=== PATIENT | male | born 1990 | race Caucasian/White ===

== ENCOUNTER 2023-08-06 12:10 | Inpatient (IN) ==
[2023-08-06 12:54] LABS: Basophils # (auto) 0.04 K/uL (0.00-0.20); Basophils % (auto) 0.8 %; Eosinophils # (auto) 0.09 K/uL (0.00-0.50); Eosinophils % (auto) 1.8 %; Hemoglobin 13.8 g/dl (14.0-18.0); Lymphocytes # (auto) 1.17 K/uL (1.20-3.40); Lymphocytes % (auto) 22.9 %; Mean Corpuscular Hemoglobin 29.8 pg (25.0-34.0); Mean Corpuscular Hgb Conc 33.7 g/dL (32.0-36.0); Mean Corpuscular Volume 88.6 fL (80.0-100.0); Mean Platelet Volume 11.1 fL (9.4-12.4); Monocytes # (auto) 0.59 K/uL (0.11-0.59); Monocytes % (auto) 11.5 %; Neutrophils # (auto) 3.22 K/uL (1.40-6.50); Platelet Count 128 K/uL (130-400); RDW Coefficient of Variation 12.6 % (11.5-14.5); RDW Standard Deviation 40.3 fL (36.4-46.3); Red Blood Count 4.63 M/uL (4.70-6.10); White Blood Count 5.11 K/ul (4.8-10.8)
[2023-08-06 13:08] LABS: BUN Creatinine Ratio 19.6 (10-20); Calcium 9.8 mg/dl (8.6-10.3); Est GFR (African American) 127.1 ml/min; Est GFR (Non-African American) 109.7 ml/min; Potassium 4.8 mmol/L (3.5-5.1)
[2023-08-06 13:25] LABS: Albumin Globulin Ratio 1.6 (0.9-2); Albumin Level 4.4 gm/dl (3.4-5.0); Bilirubin,Total 0.7 mg/dl (0.2-1.0); Globulin 2.7 gm/dl (2.5-4.0); Total Protein 7.1 gm/dl (6.0-8.3)
[2023-08-06] MEDS ORDERED: SODIUM CHLORIDE 0.9% 2,000 ML IV ONE (13:49)
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
[2023-08-06 16:27] LABS: Appearance Urine Clear (Clear); Bilirubin Urine Negative (Negative); Blood Urine Negative (Negative); Color Urine Yellow; Glucose Urine UA Negative (Negative); Ketones Urine Negative (Negative); Leukocyte Esterase Urine Negative (Negative); Nitrite Urine Negative (Negative); Protein Urine Negative (Negative); Specific Gravity Urine 1.019 (1.000-1.030); Urobilinogen Urine Negative (Negative)
--- NOTE | 2023-08-06 16:41 | Ultrasound Report ---
US liver CLINICAL HISTORY: transaminitis COMPARISON STUDY: CT of the abdomen and pelvis July 31, 2023. FINDINGS: Liver is sonographically normal. There is no biliary ductal dilatation. The common bile lakshmi t measures 3 mm in caliber. No gallstones are identified. No sonographic Diaz sign was elicited. Ga llbladder wall thickness is at the upper limits of normal. There is no pericholecystic fluid. Pancrea s is obscured by overlying bowel gas. There is no right hydronephrosis. IMPRESSION: 1. No significant abnormality within the right upper quadrant by sonography. 2. Obscured pancreas. ACT 112: Negative or not required by law. Electronically signed by: Leonel Schwarz M.D. 08/06/2023 4:39 PM
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
[2023-08-07] MEDS ORDERED: NITROGLYCERIN SL 0.4 MG/TAB TAB SL PRN (00:12)
[2023-08-07] MEDS ORDERED: POLYETHYLENE (MIRALAX) 17 GM PACK PO PRN (00:12)
[2023-08-07] MEDS: SODIUM CHLORIDE 0.9% 1,000 ML IV SCH ×7 (00:34→20:54)
[2023-08-07 06:35] LABS: Albumin Level 3.4 gm/dl (3.4-5.0); Bilirubin Direct 0.1 mg/dl (0-0.2); Bilirubin,Total 0.4 mg/dl (0.2-1.0); Total Protein 5.6 gm/dl (6.0-8.3)
[2023-08-07 07:35] LABS: Basophils # (auto) 0.04 K/uL (0.00-0.20); Basophils % (auto) 0.8 %; Eosinophils # (auto) 0.13 K/uL (0.00-0.50); Eosinophils % (auto) 2.5 %; Hematocrit (blood only) 34.5 % (42.0-52.0); Hemoglobin 11.4 g/dl (14.0-18.0); Immature Granulocytes # (auto) 0.01 K/uL (0.01-0.20); Immature Granulocytes % (auto) 0.2 %; Lymphocytes # (auto) 1.69 K/uL (1.20-3.40); Lymphocytes % (auto) 32.2 %; Mean Corpuscular Hemoglobin 29.5 pg (25.0-34.0); Mean Corpuscular Volume 89.4 fL (80.0-100.0); Mean Platelet Volume 11.1 fL (9.4-12.4); Monocytes # (auto) 0.55 K/uL (0.11-0.59); Monocytes % (auto) 10.5 %; Neutrophils # (auto) 2.83 K/uL (1.40-6.50); Neutrophils % (auto) 53.8 %; Platelet Count 115 K/uL (130-400); RDW Coefficient of Variation 12.5 % (11.5-14.5); RDW Standard Deviation 40.5 fL (36.4-46.3); Red Blood Count 3.86 M/uL (4.70-6.10); White Blood Count 5.25 K/ul (4.8-10.8)
[2023-08-07 08:05] LABS: Albumin Globulin Ratio 1.7 (0.9-2); Albumin Level 3.6 gm/dl (3.4-5.0); BUN Creatinine Ratio 16.7 (10-20); Bilirubin,Total 0.5 mg/dl (0.2-1.0); Calcium 8.6 mg/dl (8.6-10.3); Est GFR (African American) 138.4 ml/min; Est GFR (Non-African American) 119.4 ml/min; Globulin 2.1 gm/dl (2.5-4.0); Magnesium 1.8 mg/dl (1.7-2.4); Potassium 3.8 mmol/L (3.5-5.1); Total Protein 5.7 gm/dl (6.0-8.3)
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
[2023-08-08] MEDS: SODIUM CHLORIDE 0.9% 1,000 ML IV SCH ×6 (00:58→22:21)
--- NOTE | 2023-08-08 08:33 | Nephrology Progress Note ---
Date of Service August 08, 2023 Assessment & Plan (1) Rhabdomyolysis: Plan: Patient with traumatic rhabdomyolysis. Peak CK was 56,000. CK is downtrending with IV fluids as of 08/07. He continues to make urine with normal renal function. Other electrolytes are stable. No indication for dialysis. -Continue normal saline at lowered rate 150 ml/hr for now -await labs from today >> improvement continues -Once his CK is less than 5000 patient can be safely discharged. Care coordinated w/ Dr Bautista. No specific renal f/u indicated Would avoid NSAIDs until BOTH CK and transaminase levels have normalized for at least a week Will sign off; pls call if further ? (2) Transaminitis: Plan: Patient with elevated liver enzymes likely in setting of the rhabdomyolysis. Liver enzymes are downtrending. We will continue conservative management with IV fluids Admission and Anticipated Discharge Date Admission Date: August 06, 2023 Subjective no interval events clinically; denies uncontrolled pain or issues passing urine; denies edema Review of Systems 2 Review of Systems: All systems reviewed & are unremarkable except as noted in Subjective Physical Exam 2 Constitutional: well developed, + thin and cooperative Eyes: EOM intact bilaterally and + periorbital abnormality (ecchymosis) ENMT: Ears: no external ear abnormality Nose: no external nose abnormality Mouth: + dry oral mucous membranes Neck: no nuchal rigidity Respiratory: normal respiratory effort Auscultation: + diminished lung sounds Cardiovascular: Rate/Rhythm: regular rhythm and + bradycardic Extremities: no edema Gastrointestinal (Abdomen): Inspection/Auscultation: normal bowel sounds P ercussion/Palpation: abdomen soft; abdomen nontender Musculoskeletal: Extremities: strength 5/5 throughout Skin: no rashes, warm and dry Neurologic: hsu, fluent speech, no tremor Results & Data Vital Signs (Past 12 Hours) Vital Signs Temp Pulse Pulse Resp BP Pulse Ox O2 Del Method 08/08/23 08:00 36.3 C L 50 L 16 105/67 99 Room Air 08/08/23 04:58 36.3 C L 54 L 18 112/72 97 Room Air 08/07/23 23:43 60 08/07/23 23:34 36.6 C 58 L 18 122/73 98 Room Air Laboratory Results 08/07/23 07:14 08/07/23 07:14 CK 6351
[2023-08-08 09:01] LABS: Hematocrit (blood only) 38.6 % (42.0-52.0); Hemoglobin 12.6 g/dl (14.0-18.0); Mean Corpuscular Hemoglobin 29.4 pg (25.0-34.0); Mean Corpuscular Hgb Conc 32.6 g/dL (32.0-36.0); Mean Corpuscular Volume 90.2 fL (80.0-100.0); Mean Platelet Volume 11.1 fL (9.4-12.4); Platelet Count 133 K/uL (130-400); RDW Coefficient of Variation 12.6 % (11.5-14.5); RDW Standard Deviation 41.3 fL (36.4-46.3); Red Blood Count 4.28 M/uL (4.70-6.10); White Blood Count 5.13 K/ul (4.8-10.8)
[2023-08-08 09:16] LABS: BUN Creatinine Ratio 12.7 (10-20); Creatinine Clr Calc Pharmacy 123.8 ml/min; Est GFR (African American) 137.7 ml/min; Est GFR (Non-African American) 118.8 ml/min; Potassium 3.9 mmol/L (3.5-5.1)
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
[2023-08-08 09:32] LABS: Albumin Globulin Ratio 1.6 (0.9-2); Albumin Level 4.1 gm/dl (3.4-5.0); Bilirubin,Total 0.7 mg/dl (0.2-1.0); Globulin 2.5 gm/dl (2.5-4.0); Magnesium 1.9 mg/dl (1.7-2.4); Phosphorus 3.8 mg/dl (2.5-4.9); Total Protein 6.6 gm/dl (6.0-8.3)
[2023-08-09] MEDS: SODIUM CHLORIDE 0.9% 1,000 ML IV SCH (03:26)
[2023-08-09 06:33] LABS: Hematocrit (blood only) 36.9 % (42.0-52.0); Hemoglobin 12.5 g/dl (14.0-18.0); Mean Corpuscular Hemoglobin 29.8 pg (25.0-34.0); Mean Corpuscular Hgb Conc 33.9 g/dL (32.0-36.0); Mean Corpuscular Volume 87.9 fL (80.0-100.0); Mean Platelet Volume 10.5 fL (9.4-12.4); Platelet Count 143 K/uL (130-400); RDW Coefficient of Variation 12.5 % (11.5-14.5); RDW Standard Deviation 40.2 fL (36.4-46.3); White Blood Count 5.65 K/ul (4.8-10.8)
[2023-08-09 06:51] LABS: BUN Creatinine Ratio 15.2 (10-20); Calcium 9.4 mg/dl (8.6-10.3); Creatinine Clr Calc Pharmacy 98.9 ml/min; Est GFR (African American) 116.3 ml/min; Est GFR (Non-African American) 100.4 ml/min; Potassium 3.8 mmol/L (3.5-5.1)
[2023-08-09 06:52] LABS: Albumin Globulin Ratio 1.6 (0.9-2); Albumin Level 3.9 gm/dl (3.4-5.0); Bilirubin,Total 0.6 mg/dl (0.2-1.0); Globulin 2.4 gm/dl (2.5-4.0); Total Protein 6.3 gm/dl (6.0-8.3)
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
[2023-08-09 11:27] LABS: HBSAG NON-REACTIVE (NON-REACTIVE); Hepatitis A Antibody IgM NON-REACTIVE (NON-REACTIVE); Hepatitis B Core Antibody IgM NON-REACTIVE (NON-REACTIVE)
[2023-08-10 10:52] LABS: Folate (Folic Acid),Ser orPlas 17.61 ng/ml (>5.38)
== END 2023-08-09 12:00 | DRG 566 ==
LOC: ED 12:10 → 2W 21:21
DX: D64.9 Anemia, unspecified; J45.909 Unspecified asthma, uncomplicated; Y92.149 Unspecified place in prison as the place of occurrence of the external cause; R94.5 Abnormal results of liver function studies; D69.6 Thrombocytopenia, unspecified; T79.6XXA Traumatic ischemia of muscle, initial encounter; X58.XXXA Exposure to other specified factors, initial encounter; U07.0 Vaping-related disorder; R74.01 Elevation of levels of liver transaminase levels; S02.401D Maxillary fracture, unspecified side, subsequent encounter for fracture with routine healing; F10.21 Alcohol dependence, in remission; Y04.0XXD Assault by unarmed brawl or fight, subsequent encounter; F17.290 Nicotine dependence, other tobacco product, uncomplicated